=== PATIENT | female | born 1975 | race Two or more races ===

== ENCOUNTER 2025-10-30 18:28 | Emergency (ER) | payer MEDICAID, SELFPAY ==
[2025-10-30 18:44] VITALS: BP 150/83; PULSE 65; RESP 18; TEMP 36.8; O2SAT 96
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
[2025-10-30 18:49] VITALS: PULSE 60; RESP 18; O2SAT 98; BMI 36.6
[2025-10-30] MEDS: KETOROLAC INJ 30 MG/ML VIAL IM (19:50)
== END 2025-10-30 22:14 | disposition home or self-care (01) ==
PROVIDERS: Emergency Provider Emergency Medicine
DX: S13.4XXA Sprain of ligaments of cervical spine, initial encounter (principal); V43.62XA Car passenger injured in collision with other type car in traffic accident, initial encounter
CPT/HCPCS: 72040; 96372; 99283; J1885